=== PATIENT | male | born 1955 | race Two or more races ===

== ENCOUNTER 2024-12-06 09:34 | Inpatient (IN) | payer BC, OTHER ==
[~2024-12-06] VITALS: Ht 180.3 cm; Wt 67.2 kg
--- NOTE | 2024-12-06 10:29 | ED.PDOC ---
GI ASSESSMENT HPI Comments 68 y/o M, with PMHx of HTN presents to the ED for CC of abdominal pain. Patient states, that he has been experiencing diffuse abdominal pain with associated diarrhea and fever onset, (12/02/24). Patient reports, that he has been unable to eat as it immediately triggers him to have a bowel movement. Patient denies blood in stool, back pain, dysuria, nausea, or vomiting. No other symptoms or modifying factors at this time. Chief Complaint: Abdominal Pain Time Seen by MD: 10:05 Reviewed Notes: Nurses Notes, Medications, Allergies Allergies: Coded Allergies: NO KNOWN ALLERGIES (Unverified , 12/06/24) Information Source: Patient, Relative (Child) Mode of Arrival: Ambulatory Timing: Days Duration: Since onset Prehospital treatment: None Vomitus: None Stool: Watery Severity: Moderate Recent: None Recent Hx of: None Pain Location: Diffuse Modifying Factors: Nothing Associated sign and symptoms: Diarrhea, Abdominal Pain Past Medical History PAST MEDICAL HISTORY: HTN Surgical History: Denies all surgeries Family History Family History: Unknown Social History Smoker: Non-Smoker Alcohol: Occasionally Drugs: Denies Drug Use Lives In: Home Constitutional: denies: chills, diaphoresis, fatigue, fever, malaise, sweats, weakness, others EENTM: denies: blurred vision, double vision, ear bleeding, ear discharge, ear drainage, ear pain, ear ringing, eye pain, eye redness, hearing loss, mouth pain, mouth swelling, nasal discharge, nose bleeding, nose congestion, nose pain, photophobia, tearing, throat pain, throat swelling, voice changes, others Respiratory: denies: cough, hemoptysis, orthopnea, SOB at rest, shortness of breath, SOB with excertion, stridor, wheezing, others Cardiovascular: denies: chest pain, dizzy spells, diaphoresis, Dyspnea on exertion, edema, irregular heart beat, left arm pain, lightheadedness, palpitations, PND, syncope, others Gastrointestinal: reports: abdominal pain, diarrhea, poor appetite; denies: abdomen distended, blood streaked bowels, constipated, dysphagia, difficulty swallowing, hematemesis, melena, nausea, poor fluid intake, rectal bleeding, rectal pain, vomiting, others Genitourinary: denies: burning, dysuria, flank pain, frequency, hematuria, incontinence, penile discharge, penile sore, pain, testicle pain, testicle swelling, urgency, others Neurological: denies: dizziness, fainting, headache, left sided numbness, left sided weakness, numbness, paresthesia, pre-existing deficit, right sided numbness, right sided weakness, seizure, speech problems, tingling, tremors, weakness, others Musculoskeletal: denies: back pain, gout, joint pain, joint swelling, muscle pain, muscle stiffness, neck pain, others Integumetry: denies: bruises, change in color, change in hair/nails, dryness, laceration, lesions, lumps, rash, wounds, others Allergic/Immunocompromised: denies: Difficulty Healing, Frequent Infections, Hives, Itching, others Hematologic/Lymphatic: denies: anemia, blood clots, easy bleeding, easy bruising, swollen glands, others Endocrine: denies: excessive hunger, excessive sweating, excessive thirst, excessive urination, flushing, intolerance to cold, intolerance to heat, unexp lained weight gain, unexplained weight loss, others Psychiatric: denies: anxiety, bipolar disorder, depression, hopeless, panic disorder, schizophrenia, sleepless, suicidal, others All Other Systems: Reviewed and Negative Physical Exam General Appearance: Moderate Distress HEENT: Normal ENT Inspection, Pharynx Normal, TMs Normal Neck: Full Range of Motion, Non-Tender, Normal, Normal Inspection Respiratory: Chest Non-Tender, Lungs Clear, No Accessory Muscle Use, No Respiratory Distress, Normal Breath Sounds Cardiovascular: No Edema, No JVD, No Murmur, No Gallop, Normal Peripheral Pulses, Regular Rate/Rhythm Breast Exam: Deferred Gastrointestinal: Diffuse, No Organomegaly, No Pulsatile Mass, Normal Bowel Sounds, Soft, Tenderness Genitalia: Deferred Pelvic: Deferred Rectal: Deferred Extremities: No calf tenderness, Normal capillary refill, Normal inspection, Normal range of motion, Non-tender, No pedal edema Musculoskeletal : Apperance: Normal Neurologic: Alert, 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 Was a procedure done?: No GI differential Dx Differential Diagnosis: Diverticular disease, Gastritis/PUD, Gastroenteritis, Electrolyte Imbalance, Food Poisoning, Bacterial, Viral X-Ray, Labs, Meds, VS Vital Signs Date Time Temp Pulse Resp B/P (MAP) Pulse Ox O2 Delivery O2 Flow Rate FiO2 12/06/24 13:12 98.2 80 16 131/75 (93) 98 98.2 12/06/24 11:00 98.7 89 17 125/75 (92) 97 98.7 12/06/24 11:00 89 17 97 Room Air* 0 21 12/06/24 09:52 89 12/06/24 09:49 Room Air 0 12/06/24 09:49 98.4 108 20 128/84 (99) 99 98.4 Lab Test 12/06/24 10:48 Range/Units White Blood Count 9.6 4.4-10.8 10^3/uL Red Blood Count 4.80 4.5-5.90 10^6/uL Hemoglobin 12.8 L 13.5-17.5 g/dL Hematocrit 39.2 L 41.0-53.0 % Mean Corpuscular Volume 81.7 80.0-100.0 fL Mean Corpuscular Hemoglobin 26.6 L 28.0-32.0 pg Mean Corpuscular Hemoglobin Concent 32.6 32.0-36.0 g/dL Red Cell Distribution Width 16.5 H 11.8-14.3 % Platelet Count 326 140-450 10^3/uL Mean Platelet Volume 6.5 L 6.9-10.8 fL Neutrophils (%) (Auto) 37.0-80.0 % Lymphocytes (%) (Auto) 10.0-50.0 % Monocytes (%) (Auto) 0.0-12.0 % Basophils (%) (Auto) 0.0-2.0 % Neutrophils # (Auto) 1.6-8.6 10 ^3/uL Lymphocytes # (Auto) 0.4-5.4 10 ^3/uL Monocytes # (Auto) 0-1.3 10 ^3/uL Differential Total Cells Counted 100.0 100 Neutrophils % (Manual) 60 37.0-80.0 Band Neutrophils % (Manual) 11 Lymphocytes % (Manual) 10 10.0-50.0 Monocytes % (Manual) 19 H 0-12 Eosinophils % (Manual) 0 0-7 Basophils % (Manual) 0 0.0-2.0 Metamyelocytes % (manual) 0 Myelocytes % (Manual) 0 Promyelocytes % (Manual) 0 Blast Cells % (Manual) 0 Reactive Lymphocytes 0 Platelet Estimate Adequate Sodium Level 137 136-145 mmol/L Potassium Level 3.6 3.5-5.1 mmol/L Chloride Level 105 98-107 mmol/L Carbon Dioxide Level 23 20-31 mmol/L Anion Gap 9 5-15 Blood Urea Nitrogen 25 H 9-23 mg/dL Creatinine 1.43 H 0.700-1.30 mg/dL Glomerular Filtration Rate Calc 53 >90 mL/min BUN/Creatinine Ratio 17.5 10.0-20.0 Serum Glucose 114 H 74-106 mg/dL Calcium Level 9.8 8.7-10.4 mg/dL Total Bilirubin 0.4 0.2-1.0 mg/dL Aspartate Amino Transferase (AST) 34 13-40 U/L Alanine Aminotransferase (ALT) 45 H 7-40 U/L Alkaline Phosphatase 104 46-116 U/L Total Protein 7.6 5.7-8.2 g/dL Albumin 4.5 3.2-4.8 g/dL Current Medications Medications (Trade) Dose Ordered Sig/Alyssia Route Start Time Stop Time Status Last Admin Sodium Chloride 1,000 ml @ 1,000 mls/hr Q1H ONCE IVB 12/06/24 10:30 12/06/24 11:29 DC 12/06/24 11:09 CT FINDINGS: IMPRESSION: 1. Findings which may reflect proctocolitis. 2. Sigmoid diverticulosis without acute diverticulitis. 3. Enlarged prostate. 4. 4.3 cm right parapelvic lesion in the kidney which is isodense to renal parenchyma. This is incompletely characterized on this noncontrast study. Consider renal ultrasound as initial evaluation. MRI of the abdomen using int ravenous contrast May also be performed. 5. Hiatal hernia. The patient's CBC is within normal limits The chemistry panel shows a BUN of 25 and a creatinine of 1.43 The rest of the chemistry panel shows hyperglycemia at 114 An IV Hep-Lock was established and the patient was given a 1 L bolus of normal saline The patient is being admitted with a diagnosis of intractable abdominal pain and abdominal pain unknown etiology Images Reviewed?: Images reviewed and evaluated by me Time of 1ST Reevaluation: 10:35 Reevaluation 1ST: Unchanged Patient Education/Counseling: Diagnosis, Treatment, Prognosis Family Education/Counseling: No Family Present Departure 1 Departure Time of Disposition: 14:39 Impression: Primary Impression: Intractable abdominal pain Additional Impression: Abdominal pain of unknown etiology Disposition: ADMITTED INPATIENT Admit to: Med Surg Condition: Fair Critical Care Note Critical Care Time?: No Stability Stability form required: No Heart Score Heart Score: Heart Score Response (Comments) Value History N/A 0 EKG N/A 0 Age N/A 0 Risk Factors N/A 0 Troponin N/A 0 Total 0 I personally scribed for KT EL MD ([email or web address]) on 12/06/24 at 10:29. Electronically submitted by Li Leon ([email or web address]). I personally scribed for KT EL MD ([email or web address]) on 12/06/24 at 11:21. Electronically submitted by Li Leon ([email or web address]). KT EL MD December 06, 2024 10:29
[2024-12-06 11:00] VITALS: PULSE 89; RESP 17; O2SAT 97
[2024-12-06 11:03] LABS: Hematocrit 39.2 % (41.0-53.0); Hemoglobin 12.8 g/dL (13.5-17.5); Mean Corpuscular Hemoglobin 26.6 pg (28.0-32.0); Mean Corpuscular Hgb Conc. 32.6 g/dL (32.0-36.0); Platelet Count (auto) 326 10^3/uL (140-450)
--- NOTE | 2024-12-06 11:06 | DVH ---
Exam: CT CT AB PEL WO CON-NO ORAL OR IV History: PAIN Comparison Study: None Technique: Multidetector spiral CT of the abdomen and pelvis was performed from lung bases to pubic s ymphysis. Imaging was performed without intravenous contrast. Coronal and sagittal multiplanar reform ats were obtained from the axial data set by the technologist. Radiation Dose : 1. Abdomen/Pelvis: CTDIvol 8.6 mGy, DLP 507.4 mGy*cm. Findings: Evaluation of vasculature and solid organs is limited due to lack of intravenous contrast use. Lung Bases: Lung bases are clear. Visualized portions of the heart and pericardium are unremarkable. Liver: The liver measures 21.0 cm. No focal lesions. Gallbladder and Biliary Tree: The gallbladder is unremarkable. No intrahepatic or extrahepatic biliar y ductal dilatation. Spleen: Unremarkable Pancreas: The pancreas is grossly unremarkable. Adrenal Glands: Unremarkable Kidneys: No intrarenal calculi. 3.6 cm left renal cyst. There is a right parapelvic lesion measuring 4.3 cm which is isodense to the renal parenchyma. No hydronephrosis on either side. GI tract: Moderate size hiatal hernia. No small bowel dilatation or significant wall thickening. Ther e is mild wall thickening of the rectosigmoid colon which contains liquid stool. Sigmoid diverticulo sis without acute diverticulitis. Normal caliber appendix. Peritoneum/mesentery/retroperitoneum. No evidence of free intraperitoneal air. No ascites. No evidenc e of suspicious lymphadenopathy. Abdominal Wall: Unremarkable. Vasculature: The visualized abdominal aorta is normal in size and caliber. Evaluation of abdominal a nd pelvic vessels is limited due to lack of intravenous contrast. Urinary Bladder: Underdistended urinary bladder. Pelvic Organs: Enlarged prostate measuring 5.0 cm. Musculoskeletal: No aggressive focal bony lesions, acute fractures or dislocation. Multilevel lumbar spondylosis. IMPRESSION: 1. Findings which may reflect proctocolitis. 2. Sigmoid diverticulosis without acute diverticulitis. 3. Enlarged prostate. 4. 4.3 cm right parapelvic lesion in the kidney which is isodense to renal parenchyma. This is incomp letely characterized on this noncontrast study. Consider renal ultrasound as initial evaluation. MR I of the abdomen using intravenous contrast May also be performed. 5. Hiatal hernia.
[2024-12-06 11:09] LABS: Mean Corpuscular Volume 81.7 fL (80.0-100.0); Red Cell Distribution Width 16.5 % (11.8-14.3); White Blood Cell 9.6 10^3/uL (4.4-10.8)
[2024-12-06] MEDS: SODIUM CHLORIDE 0.9% 1,000 ML IVB ONE (11:09)
[2024-12-06 11:16] LABS: Albumin 4.5 g/dL (3.2-4.8); Alkaline Phosphatase 104 U/L (46-116); Anion Gap 9 (5-15); Aspartate Aminotransferase 34 U/L (13-40); BUN/Creatinine Ratio 17.5 (10.0-20.0); Calcium 9.8 mg/dL (8.7-10.4); Carbon Dioxide 23 mmol/L (20-31); Chloride 105 mmol/L (98-107); Potassium 3.6 mmol/L (3.5-5.1); Sodium 137 mmol/L (136-145); Total Protein 7.6 g/dL (5.7-8.2)
[2024-12-06 11:17] LABS: Alanine Aminotransferase 45 U/L (7-40); Bilirubin, Total 0.4 mg/dL (0.2-1.0); Blood Urea Nitrogen 25 mg/dL (9-23); Glucose 114 mg/dL (74-106)
[2024-12-06 11:20] LABS: Basophils % (manual) 0 (0.0-2.0); Blast Cells 0; Eosinophils % (manual) 0 (0-7); Metamyelocytes % 0; Myelocytes % 0; Promyelocytes % 0; Reactive Lymphocytes 0
[2024-12-06 12:31] LABS: Band Neutrophils % (manual) 11; Lymphocytes % (manual) 10 (10.0-50.0); Monocytes % (manual) 19 (0-12)
[2024-12-06 12:32] LABS: Platelet Estimate Adequate
--- NOTE | 2024-12-06 14:56 | DVHHP2 ---
Admitting Diagnosis: Abdominal pain History of Present Illness 68 yo male patient with hx of HTN c/o abdominal pain with associated diarrhea. Patient reports having a fever. Patient reports that he has been unable to eat due to diarrhea. While in the emergency department the patient was evaluated by the provider, As per provider: Labs, vital signs, and imagining monitored. Patient will be admitted for further evaluation and treatment. I discussed admission with the patient/family and is in agreement to treatment plan. Allergies: Coded Allergies: NO KNOWN ALLERGIES (Unverified , 12/06/24) Current Medications Current Medications Medications (Trade) Dose Ordered Sig/Alyssia Route PRN Reason Start Time Stop Time Status Last Admin Sodium Chloride 1,000 ml @ 120 mls/hr Q8H20M IV 12/06/24 15:00 Acetaminophen/ Hydrocodone Bitart ([place] 5/325MG Tab) 1 tab Q4HP PRN PO MODERATE PAIN (4-6 PAIN SCALE) 12/06/24 15:00 Temazepam (Restoril) 15 mg QHSP PRN PO FOR INSOMNIA 12/06/24 15:00 Ondansetron HCl (Zofran) 4 mg Q4HP PRN IV NAUSEA / VOMITING 12/06/24 15:00 Enoxaparin Sodium (Lovenox) 40 mg DAILY SC 12/07/24 10:00 Acetaminophen (Tylenol Tablet) 650 mg Q6HP PRN PO PAIN SCALE 1-3 OR TEMP>100.4 12/06/24 15:00 Morphine Sulfate 2 mg Q4HPRN PRN IV SEVERE PAIN (7-10 PAIN SCALE) 12/06/24 15:00 Metronidazole 100 ml @ 100 mls/hr Q8HR IV 12/06/24 15:00 12/06/24 15:21 Ceftriaxone Sodium 50 ml @ 100 mls/hr DAILY IV 12/06/24 15:00 12/06/24 15:20 Pantoprazole Sodium (Protonix Tablet) 40 mg DAILY PO 12/07/24 10:00 Lisinopril (Zestril Tablet) 20 mg DAILY PO 12/07/24 10:00 Sodium Chloride 1,000 ml @ 125 mls/hr Q8H IV 12/06/24 15:00 Review of Systems Constitutional: denies chills, denies fever, denies malaise Eyes: denies eye pain, denies vision change ENT: denies ear pain, denies headache, denies nasal congestion, denies painful swallowing, denies voice change Cardiovascular: denies chest pain, denies edema, denies orthopnea, denies palpitations, denies paroxysmal nocturnal dyspnea Respiratory: denies cough, denies shortness of breath Gastrointestinal: denies constipation, denies diarrhea, denies nausea, denies vomiting Genitourinary: denies dysuria, denies frequent urination, denies urethral discharge Musculoskeletal: denies back pain, denies joint pain, denies muscle pain Skin: denies bruising, denies itching, denies rash Neurological: denies focal weakness, denies headache, denies sensory changes Psychiatric: denies anxiety, denies depression Endocrine: denies polydipsia, denies polyuria Hematologic/Lymphatic: denies easy bleeding, denies easy bruising, denies enlarged lymph nodes Allergic/Immunologic: denies allergy, denies hives Vital Signs Vital Signs Date Time Temp Pulse Resp B/P (MAP) Pulse Ox O2 Delivery O2 Flow Rate FiO2 12/06/24 17:30 98.9 83 16 135/95 (108) 96 98.9 12/06/24 11:00 Room Air* 0 21 Physical Exam General Appearance: alert, no distress HEENT: EOMI, PERRLA, normal external inspect of ears, no icterus, no nasal drainage Neck: no carotid bruit, no jugular venous distention (JVD), no lymphadenopathy Chest: normal thorax Respiratory: clear to auscultation, normal air movement Cardiovascular: regular rate and rhythm, no diastolic murmur, no jugular venous distention (JVD), no rub, no systolic murmur Abdominal: soft, no hepatomegaly, no mass, no splenomegaly, no tenderness Genitourinary: grossly normal external Musculoskeletal: no joint tenderness, no swelling Extremities: normal pulses, no calf tenderness, no clubbing, no cyanosis, no edema Skin: no bruising, no jaundice, no rash Neurological: alert, No focal deficit Results Labs Test 12/06/24 11:04 12/06/24 10:48 Range/Units Urine Color Yellow Yellow Urine Clarity Clear Clear Urine pH 5.5 5.0-9.0 Urine Specific [place] 1.022 1.001-1.035 Urine Protein 1+ H Negative Urine Ketones Negative Negative Urine Blood Negative Negative /uL Urine Nitrite Negative Negative Urine Bilirubin Negative Negative Urine Urobilinogen Normal Negative mg/dL Urine Leukocyte Esterase Negative Negative /uL Urine RBC 1 0 - 3 /hpf Urine Microscopic WBC 1 0-3 /HPF Urine Squamous Epithelial Cells Few <5 /hpf Urine Bacteria None seen None Seen /hpf Urine Hyaline Casts Few 0 - 2 /lpf Urine Mucus Few None Seen Urine Glucose Normal Normal mg/dL White Blood Count 9.6 4.4-10.8 10^3/uL Red Blood Count 4.80 4.5-5.90 10^6/uL Hemoglobin 12.8 L 13.5-17.5 g/dL Hematocrit 39.2 L 41.0-53.0 % Mean Corpuscular Volume 81.7 80.0-100.0 fL Mean Corpuscular Hemoglobin 26.6 L 28.0-32.0 pg Mean Corpuscular Hemoglobin Concent 32.6 32.0-36.0 g/dL Red Cell Distribution Width 16.5 H 11.8-14.3 % Platelet Count 326 140-450 10^3/uL Mean Platelet Volume 6.5 L 6.9-10.8 fL Neutrophils (%) (Auto) 37.0-80.0 % Lymphocytes (%) (Auto) 10.0-50.0 % Monocytes (%) (Auto) 0.0-12.0 % Basophils (%) (Auto) 0.0-2.0 % Neutrophils # (Auto) 1.6-8.6 10 ^3/uL Lymphocytes # (Auto) 0.4-5.4 10 ^3/uL Monocytes # (Auto) 0-1.3 10 ^3/uL Differential Total Cells Counted 100.0 100 Neutrophils % (Manual) 60 37.0-80.0 Band Neutrophils % (Manual) 11 Lymphocytes % (Manual) 10 10.0-50.0 Monocytes % (Manual) 19 H 0-12 Eosinophils % (Manual) 0 0-7 Basophils % (Manual) 0 0.0-2.0 Metamyelocytes % (manual) 0 Myelocytes % (Manual) 0 Promyelocytes % (Manual) 0 Blast Cells % (Manual) 0 Reactive Lymphocytes 0 Platelet Estimate Adequate Sodium Level 137 136-145 mmol/L Potassium Level 3.6 3.5-5.1 mmol/L Chloride Level 105 98-107 mmol/L Carbon Dioxide Level 23 20-31 mmol/L Anion Gap 9 5-15 Blood Urea Nitrogen 25 H 9-23 mg/dL Creatinine 1.43 H 0.700-1.30 mg/dL Glomerular Filtration Rate Calc 53 >90 mL/min BUN/Creatinine Ratio 17.5 10.0-20.0 Serum Glucose 114 H 74-106 mg/dL Calcium Level 9.8 8.7-10.4 mg/dL Total Bilirubin 0.4 0.2-1.0 mg/dL Aspartate Amino Transferase (AST) 34 13-40 U/L Alanine Aminotransferase (ALT) 45 H 7-40 U/L Alkaline Phosphatase 104 46-116 U/L Total Protein 7.6 5.7-8.2 g/dL Albumin 4.5 3.2-4.8 g/dL Plan 1. Proctocolitis Monitor, IV abx, daily labs 2. Diarrhea Monitor, GI consult, PPI 3. Benign essential HTN Monitor, antihypertensives, DVT prophylaxis 4. Dehydration Monitor, IV fluids Plan discussed with: Patient, Other SUHAS AREVALO NP December 06, 2024 14:56
[2024-12-06 14:57] LABS: Urine Bacteria None Seen /hpf (None Seen)
[2024-12-06] MEDS: SODIUM CHLORIDE 0.9% 1,000 ML IV SCH ×2 (15:00)
[2024-12-06] MEDS ORDERED: HYDROcodone-ACET 5/325MG TAB PO PRN (15:00)
[2024-12-06] MEDS ORDERED: TEMAZEPAM 15 MG CAP PO PRN (15:00)
[2024-12-06] MEDS ORDERED: ONDANSETRON HCL 4 MG/2 ML VIAL IV PRN (15:00)
[2024-12-06] MEDS ORDERED: ACETAMINOPHEN 325 MG TAB PO PRN (15:00)
[2024-12-06] MEDS ORDERED: MORPHINE SULFATE INJ 2 MG/ml SYRG IV PRN (15:00)
[2024-12-06 15:09] LABS: Urine Blood Negative /uL (Negative); Urine Clarity Clear (Clear); Urine Color Yellow (Yellow); Urine Hyaline Cast FEW /lpf (0 - 2); Urine Mucus FEW (None Seen); Urine Protein, UAD 1+ (Negative); Urine Specific Gravity 1.022 (1.001-1.035); Urine Squamous Epithelial Cell FEW /hpf (<5); Urine Urobilinogen Normal (Negative); Urine WBC 1 /HPF (0-3); Urine pH 5.5 (5.0-9.0)
[2024-12-06] MEDS: cefTRIAXone 1GM/50ML D5W 50 ML IV SCH (15:20)
[2024-12-06] MEDS: metroNIDAZOLE 500MG/100ML 100 ML IV SCH (15:21)
--- NOTE | 2024-12-06 19:55 | DVHINCON2 ---
Date of service: December 06, 2024 Referring Physician Dayanna Ureña Reason for Consultation Possible proctocolitis History of Present Illness 68 y/o M, with PMHx of HTN presents to the ED for CC of abdominal pain. Patient states, that he has been experiencing diffuse abdominal pain with associated d iarrhea and fever onset, (12/02/24). Patient reports, that he has been unable to eat as it immediately triggers him to have a bowel movement. Patient denies blood in stool, back pain, dysuria, nausea, or vomiting. No other symptoms or modifying factors at this time.No prior history of colitis Past Medical History HTN Past Surgical History Negative Allergies: Coded Allergies: NO KNOWN ALLERGIES (Unverified , 12/06/24) Current Medications Current Medications Medications (Trade) Dose Ordered Sig/Alyssia Route PRN Reason Start Time Stop Time Status Last Admin Sodium Chloride 1,000 ml @ 120 mls/hr Q8H20M IV 12/06/24 15:00 Acetaminophen/ Hydrocodone Bitart ([place] 5/325MG Tab) 1 tab Q4HP PRN PO MODERATE PAIN (4-6 PAIN SCALE) 12/06/24 15:00 Temazepam (Restoril) 15 mg QHSP PRN PO FOR INSOMNIA 12/06/24 15:00 Ondansetron HCl (Zofran) 4 mg Q4HP PRN IV NAUSEA / VOMITING 12/06/24 15:00 Enoxaparin Sodium (Lovenox) 40 mg DAILY SC 12/07/24 10:00 Acetaminophen (Tylenol Tablet) 650 mg Q6HP PRN PO PAIN SCALE 1-3 OR TEMP>100.4 12/06/24 15:00 Morphine Sulfate 2 mg Q4HPRN PRN IV SEVERE PAIN (7-10 PAIN SCALE) 12/06/24 15:00 Metronidazole 100 ml @ 100 mls/hr Q8HR IV 12/06/24 15:00 12/06/24 15:21 Ceftriaxone Sodium 50 ml @ 100 mls/hr DAILY IV 12/06/24 15:00 12/06/24 15:20 Pantoprazole Sodium (Protonix Tablet) 40 mg DAILY PO 12/07/24 10:00 Lisinopril (Zestril Tablet) 20 mg DAILY PO 12/07/24 10:00 Sodium Chloride 1,000 ml @ 125 mls/hr Q8H IV 12/06/24 15:00 Vital Signs Vital Signs Date Time Temp Pulse Resp B/P (MAP) Pulse Ox O2 Delivery O2 Flow Rate FiO2 12/06/24 17:30 98.9 83 16 135/95 (108) 96 98.9 12/06/24 11:00 Room Air* 0 21 Physical Exam Hemodynamically stable Full physical examination deferred Labs/Diagnostic Data Labs Test 12/06/24 11:04 12/06/24 10:48 Range/Units Urine Color Yellow Yellow Urine Clarity Clear Clear Urine pH 5.5 5.0-9.0 Urine Specific [place] 1.022 1.001-1.035 Urine Protein 1+ H Negative Urine Ketones Negative Negative Urine Blood Negative Negative /uL Urine Nitrite Negative Negative Urine Bilirubin Negative Negative Urine Urobilinogen Normal Negative mg/dL Urine Leukocyte Esterase Negative Negative /uL Urine RBC 1 0 - 3 /hpf Urine Microscopic WBC 1 0-3 /HPF Urine Squamous Epithelial Cells Few <5 /hpf Urine Bacteria None seen None Seen /hpf Urine Hyaline Casts Few 0 - 2 /lpf Urine Mucus Few None Seen Urine Glucose Normal Normal mg/dL White Blood Count 9.6 4.4-10.8 10^3/uL Red Blood Count 4.80 4.5-5.90 10^6/uL Hemoglobin 12.8 L 13.5-17.5 g/dL Hematocrit 39.2 L 41.0-53.0 % Mean Corpuscular Volume 81.7 80.0-100.0 fL Mean Corpuscular Hemoglobin 26.6 L 28.0-32.0 pg Mean Corpuscular Hemoglobin Concent 32.6 32.0-36.0 g/dL Red Cell Distribution Width 16.5 H 11.8-14.3 % Platelet Count 326 140-450 10^3/uL Mean Platelet Volume 6.5 L 6.9-10.8 fL Neutrophils (%) (Auto) 37.0-80.0 % Lymphocytes (%) (Auto) 10.0-50.0 % Monocytes (%) (Auto) 0.0-12.0 % Basophils (%) (Auto) 0.0-2.0 % Neutrophils # (Auto) 1.6-8.6 10 ^3/uL Lymphocytes # (Auto) 0.4-5.4 10 ^3/uL Monocytes # (Auto) 0-1.3 10 ^3/uL Differential Total Cells Counted 100.0 100 Neutrophils % (Manual) 60 37.0-80.0 Band Neutrophils % (Manual) 11 Lymphocytes % (Manual) 10 10.0-50.0 Monocytes % (Manual) 19 H 0-12 Eosinophils % (Manual) 0 0-7 Basophils % (Manual) 0 0.0-2.0 Metamyelocytes % (manual) 0 Myelocytes % (Manual) 0 Promyelocytes % (Manual) 0 Blast Cells % (Manual) 0 Reactive Lymphocytes 0 Platelet Estimate Adequate Sodium Level 137 136-145 mmol/L Potassium Level 3.6 3.5-5.1 mmol/L Chloride Level 105 98-107 mmol/L Carbon Dioxide Level 23 20-31 mmol/L Anion Gap 9 5-15 Blood Urea Nitrogen 25 H 9-23 mg/dL Creatinine 1.43 H 0.700-1.30 mg/dL Glomerular Filtration Rate Calc 53 >90 mL/min BUN/Creatinine Ratio 17.5 10.0-20.0 Serum Glucose 114 H 74-106 mg/dL Calcium Level 9.8 8.7-10.4 mg/dL Total Bilirubin 0.4 0.2-1.0 mg/dL Aspartate Amino Transferase (AST) 34 13-40 U/L Alanine Aminotransferase (ALT) 45 H 7-40 U/L Alkaline Phosphatase 104 46-116 U/L Total Protein 7.6 5.7-8.2 g/dL Albumin 4.5 3.2-4.8 g/dL CT SCAN ABD PELVIS IMPRESSION: 1. Findings which may reflect proctocolitis. 2. Sigmoid diverticulosis without acute diverticulitis. 3. Enlarged prostate. 4. 4.3 cm right parapelvic lesion in the kidney which is isodense to renal parenchyma. This is incompletely characterized on this noncontrast study. Consider renal ultrasound as initial evaluation. MRI of the abdomen using intravenous contrast May also be performed. 5. Hiatal hernia. Problems(with codes): (1) Abnormal finding on GI tract imaging (2) Change in bowel habits (3) Proctocolitis (4) Intractable abdominal pain Plan/Recommendation PLAN Stool for occult blood, WBC, bacterial culture Continue IV antibiotics mesalamine 800 mg p.o. three times a day We will discuss the patient regarding the possibility of a colonoscopy if not recently donePossibly as an outpatient if his symptoms improve Plan discussed with: Other (None) AMANDA VIERA MD December 06, 2024 19:55
[2024-12-07 01:52] VITALS: PULSE 84; O2SAT 96
[2024-12-07 05:38] LABS: Hematocrit 32.5 % (41.0-53.0); Hemoglobin 10.7 g/dL (13.5-17.5); Mean Corpuscular Hemoglobin 26.4 pg (28.0-32.0); Mean Corpuscular Hgb Conc. 32.9 g/dL (32.0-36.0); Mean Corpuscular Volume 80.1 fL (80.0-100.0); Platelet Count (auto) 296 10^3/uL (140-450); Red Blood Cells 4.06 10^6/uL (4.5-5.90); Red Cell Distribution Width 16.7 % (11.8-14.3); White Blood Cell 5.9 10^3/uL (4.4-10.8)
[2024-12-07 05:40] LABS: Alanine Aminotransferase 36 U/L (7-40); Albumin 3.8 g/dL (3.2-4.8); Alkaline Phosphatase 90 U/L (46-116); Anion Gap 9 (5-15); Aspartate Aminotransferase 32 U/L (13-40); BUN/Creatinine Ratio 29.1 (10.0-20.0); Carbon Dioxide 23 mmol/L (20-31); Glucose 98 mg/dL (74-106); Potassium 3.6 mmol/L (3.5-5.1); Sodium 139 mmol/L (136-145); Total Protein 6.2 g/dL (5.7-8.2)
[2024-12-07 05:43] LABS: Bilirubin, Total 0.2 mg/dL (0.2-1.0); Blood Urea Nitrogen 30 mg/dL (9-23); Calcium 8.6 mg/dL (8.7-10.4); Chloride 107 mmol/L (98-107)
[2024-12-07 05:48] LABS: Band Neutrophils % (manual) 0; Basophils % (manual) 0 (0.0-2.0); Blast Cells 0; Metamyelocytes % 0; Myelocytes % 0; Promyelocytes % 0; Reactive Lymphocytes 0
[2024-12-07 07:31] LABS: Eosinophils % (manual) 1 (0-7); Lymphocytes % (manual) 23 (10.0-50.0); Monocytes % (manual) 10 (0-12); Platelet Estimate Adequate
[2024-12-07 07:44] LABS: CRP High Sensitivity 5.96 mg/dL (<1.0)
--- NOTE | 2024-12-07 08:53 | DVHPN2 ---
Progress Note - Dictate Date Seen: December 07, 2024 Medical Necessity Reason Pt with a Central, PICC or Fol: No vital signs Vital Sign Date Time Temp Pulse Resp B/P (MAP) Pulse Ox O2 Delivery O2 Flow Rate FiO2 12/07/24 08:00 98.1 79 12 136/75 (95) 97 98.1 12/07/24 01:52 Room Air* 0 21 Total Intake and Output 12/06/24 12/06/24 12/07/24 15:00 23:00 07:00 Intake Total 1000 ml 50 ml 680 ml Balance 1000 ml 50 ml 680 ml medications Current Medications Medications Dose Ordered Sig/Alyssia Route Start Time Stop Time Status Last Admin Dose Admin Sodium Chloride 1,000 ml @ 120 mls/hr Q8H20M IV 12/06/24 15:00 12/07/24 01:29 120 MLS/HR Acetaminophen/ Hydrocodone Bitart 1 tab Q4HP PRN PO 12/06/24 15:00 Temazepam 15 mg QHSP PRN PO 12/06/24 15:00 Ondansetron HCl 4 mg Q4HP PRN IV 12/06/24 15:00 Enoxaparin Sodium 40 mg DAILY SC 12/07/24 10:00 Acetaminophen 650 mg Q6HP PRN PO 12/06/24 15:00 Morphine Sulfate 2 mg Q4HPRN PRN IV 12/06/24 15:00 Metronidazole 100 ml @ 100 mls/hr Q8HR IV 12/06/24 15:00 12/07/24 05:45 100 MLS/HR Ceftriaxone Sodium 50 ml @ 100 mls/hr DAILY IV 12/06/24 15:00 12/06/24 15:20 100 MLS/HR Pantoprazole Sodium 40 mg DAILY PO 12/07/24 10:00 Lisinopril 20 mg DAILY PO 12/07/24 10:00 Sodium Chloride 1,000 ml @ 125 mls/hr Q8H IV 12/06/24 15:00 objective General Appearance: alert, no distress HEENT: EOMI, PERRLA, normal external inspect of ears, no icterus, no nasal drainage Neck: no carotid bruit, no jugular venous distention (JVD), no lymphadenopathy Chest: normal thorax Respiratory: clear to auscultation, normal air movement Cardiovascular: regular rate and rhythm, no diastolic murmur, no jugular venous distention (JVD), no rub, no systolic murmur Abdominal: soft, no hepatomegaly, no mass, no splenomegaly, no tenderness Genitourinary: grossly normal external Musculoskeletal: no joint tenderness, no swelling Extremities: normal pulses, no calf tenderness, no clubbing, no cyanosis, no edema Skin: no bruising, no jaundice, no rash Neurological: alert, No focal deficit laboratory and microbiology Laboratory Tests 12/07/24 04:48 Test 12/07/24 04:48 Range/Units Serum Glucose 98 74-106 mg/dL Problem List 1. Proctocolitis Monitor, IV abx, daily labs 2. Diarrhea Monitor, GI consult, PPI 3. Benign essential HTN Monitor, antihypertensives, DVT prophylaxis 4. Dehydration Monitor, IV fluids Assessment/Plan Subjective: Patient is awake and alert. Objective: Patient is and speaks minimal Khmer. Patient is sitting up in a chair. Patient was admitted for abdominal pain related to frequent diarrhea. CT imaging suggests proctocolitis. GI was consulted. Patient was started on mesalamine. Patient was noted to be dehydrated and has resolving SARAH related to vasomotor nephropathy. Kidney function is now normal. Plan: Continue antibiotics for proctocolitis. Send stool for culture. Monitor renal status. Plan discussed with: Patient, Other SUHAS AREVALO NP December 07, 2024 08:53
--- NOTE | 2024-12-07 08:59 | ECG ---
[facility] Test Date: 2024-12-06 Test Time: 09:52:36 Pat Name: LANDY HEMPHILL Department: ER Room: 0238 Gender: M Hod Carrier: FRANCESCO : 1955 Requested By: EMERGENCY EMERGENCY Order Number: [id number] Reading MD: Filiberto Burks Measurements Intervals [place] Rate: 89 P: 84 [place]: 203 QRS: 256 QRSD: 107 T: 59 QT: 367 QTc: 447 Interpretive Statements Sinus rhythm Left anterior fascicular block Probable anterior infarct, old ST elevation suggests acute pericarditis Electronically Signed On 12-08-2024 12:45:23 PDT by Filiberto Burks Please click the below link to view image of tracing.
[2024-12-07] MEDS: PANTOPRAZOLE 40 MG TAB PO SCH (10:00)
[2024-12-07] MEDS: LISINOPRIL 20 MG TAB PO SCH (10:00)
[2024-12-07] MEDS: ENOXAPARIN SOD 40 MG/0.4 ML SYRINGE SC SCH (10:00)
--- NOTE | 2024-12-07 21:40 | DVHPN2 ---
Progress Note - Dictate Date Seen: December 07, 2024 Medical Necessity Reason Pt with a Central, PICC or Fol: No Subjective No new complaints, patient is feeling better Finally a stool sample was collected and sent to the lab this evening vital signs Vital Sign Date Time Temp Pulse Resp B/P (MAP) Pulse Ox O2 Delivery O2 Flow Rate FiO2 12/07/24 08:00 98.1 79 12 136/75 (95) 97 98.1 12/07/24 01:52 Room Air* 0 21 Total Intake and Output 12/06/24 12/06/24 12/07/24 15:00 23:00 07:00 Intake Total 1000 ml 50 ml 680 ml Balance 1000 ml 50 ml 680 ml medications Current Medications Medications Dose Ordered Sig/Alyssia Route Start Time Stop Time Status Last Admin Dose Admin Sodium Chloride 1,000 ml @ 120 mls/hr Q8H20M IV 12/06/24 15:00 12/07/24 01:29 120 MLS/HR Acetaminophen/ Hydrocodone Bitart 1 tab Q4HP PRN PO 12/06/24 15:00 Temazepam 15 mg QHSP PRN PO 12/06/24 15:00 Ondansetron HCl 4 mg Q4HP PRN IV 12/06/24 15:00 Enoxaparin Sodium 40 mg DAILY SC 12/07/24 10:00 Acetaminophen 650 mg Q6HP PRN PO 12/06/24 15:00 Morphine Sulfate 2 mg Q4HPRN PRN IV 12/06/24 15:00 Metronidazole 100 ml @ 100 mls/hr Q8HR IV 12/06/24 15:00 12/07/24 05:45 100 MLS/HR Ceftriaxone Sodium 50 ml @ 100 mls/hr DAILY IV 12/06/24 15:00 12/06/24 15:20 100 MLS/HR Pantoprazole Sodium 40 mg DAILY PO 12/07/24 10:00 Lisinopril 20 mg DAILY PO 12/07/24 10:00 Sodium Chloride 1,000 ml @ 125 mls/hr Q8H IV 12/06/24 15:00 objective General Appearance: No Distress HEENT: Normal ENT Inspection, Pharynx Normal, TMs Normal Respiratory: Chest Non-Tender, Lungs Clear, No Accessory Muscle Use, No Respiratory Distress, Normal Breath Sounds Cardiovascular: No Edema, No JVD, No Murmur, No Gallop, Normal Peripheral Pulses, Regular Rate/Rhythm Gastrointestinal: Diffuse, No Organomegaly, No Pulsatile Mass, Normal Bowel Sounds, Soft, Tenderness Extremities: No calf tenderness, Normal capillary refill, Normal inspection, Normal range of motion, Non-tender, No pedal edema Neurologic: Alert, 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, Motor Weakness, Normal Affect, Normal Mood, No Sensory Deficits laboratory and microbiology Laboratory Tests 12/07/24 04:48 Test 12/07/24 04:48 Range/Units Serum Glucose 98 74-106 mg/dL Problems(with codes): (1) Abnormal finding on GI tract imaging (2) Change in bowel habits (3) Proctocolitis (4) Intractable abdominal pain Prognosis Plan Continue IV antibiotics Advance to full liquid diet If he is better tomorrow we will advance to soft mechanical Await stool culture results Elective colonoscopy once medically stabilized Once again thank you for allowing me to participate in the care of this patient Plan discussed with: Other (ER Nurse) AMANDA VIERA MD December 07, 2024 21:39
[2024-12-08] VITALS (8 sets, daily range): BP systolic 129–153; BP diastolic 67–82; PULSE 63–81; RESP 16–18; TEMP 97.4–98.2; O2SAT 96–99
[2024-12-08 10:06] LABS: Basophils # (auto) 0 10 ^3/uL (0-0.2); Basophils % (auto) 0.4 % (0.0-2.0); Eosinophils # (auto) 0 10 ^3/uL (0-0.8); Eosinophils % (auto) 0.5 % (0.0-7.0); Hematocrit 32.5 % (41.0-53.0); Hemoglobin 10.6 g/dL (13.5-17.5); Lymphocytes # (auto) 1.3 10 ^3/uL (0.4-5.4); Lymphocytes % (auto) 27.1 % (10.0-50.0); Mean Corpuscular Hemoglobin 26.1 pg (28.0-32.0); Mean Corpuscular Hgb Conc. 32.6 g/dL (32.0-36.0); Monocytes # (auto) 0.8 10 ^3/uL (0-1.3); Monocytes % (auto) 17.3 % (0.0-12.0); Neutrophils # (auto) 2.6 10 ^3/uL (1.6-8.6); Neutrophils % (auto) 54.7 % (37.0-80.0); Nucleated Red Blood Cells % 0.1 %; Platelet Count (auto) 305 10^3/uL (140-450); Red Blood Cells 4.07 10^6/uL (4.5-5.90); Red Cell Distribution Width 16.4 % (11.8-14.3); White Blood Cell 4.7 10^3/uL (4.4-10.8)
[2024-12-08 10:10] LABS: Hepatitis B Surface Antigen Negative (Negative)
[2024-12-08 10:11] LABS: Potassium 3.5 mmol/L (3.5-5.1); Sodium 138 mmol/L (136-145)
[2024-12-08 10:12] LABS: Anion Gap 7 (5-15); Carbon Dioxide 23 mmol/L (20-31)
[2024-12-08 10:13] LABS: Calcium 9.3 mg/dL (8.7-10.4); Chloride 108 mmol/L (98-107)
[2024-12-08 10:17] LABS: Glucose 88 mg/dL (74-106)
[2024-12-08] MEDS: LISINOPRIL 20 MG TAB PO SCH (10:17)
[2024-12-08 10:18] LABS: BUN/Creatinine Ratio 27.2 (10.0-20.0); Blood Urea Nitrogen 22 mg/dL (9-23)
[2024-12-08 10:27] LABS: Hepatitis C Antibody Negative (Negative)
--- NOTE | 2024-12-08 14:13 | DVHPN2 ---
Progress Note - Dictate Date Seen: December 08, 2024 Medical Necessity Reason Pt with a Central, PICC or Fol: No Subjective No new complaints, patient is feeling better Finally a stool sample was collected for WBC was positive for many WBCs There was no further diarrhea and he is only passing gas Other stool samples were not collected Patient has not had a prior colonoscopy vital signs Vital Sign Date Time Temp Pulse Resp B/P (MAP) Pulse Ox O2 Delivery O2 Flow Rate FiO2 12/08/24 12:48 98.0 67 16 139/77 (97) 98 98.0 12/08/24 08:00 Room Air* 0 21 Total Intake and Output 12/07/24 12/07/24 12/08/24 15:00 23:00 07:00 Intake Total 250 ml Balance 250 ml medications Current Medications Medications Dose Ordered Sig/Alyssia Route Start Time Stop Time Status Last Admin Dose Admin Sodium Chloride 1,000 ml @ 120 mls/hr Q8H20M IV 12/06/24 15:00 12/07/24 01:29 120 MLS/HR Acetaminophen/ Hydrocodone Bitart 1 tab Q4HP PRN PO 12/06/24 15:00 Temazepam 15 mg QHSP PRN PO 12/06/24 15:00 Ondansetron HCl 4 mg Q4HP PRN IV 12/06/24 15:00 Enoxaparin Sodium 40 mg DAILY SC 12/07/24 10:00 12/08/24 10:18 40 MG Acetaminophen 650 mg Q6HP PRN PO 12/06/24 15:00 Morphine Sulfate 2 mg Q4HPRN PRN IV 12/06/24 15:00 Metronidazole 100 ml @ 100 mls/hr Q8HR IV 12/06/24 15:00 12/08/24 13:42 100 MLS/HR Ceftriaxone Sodium 50 ml @ 100 mls/hr DAILY IV 12/06/24 15:00 12/08/24 10:16 100 MLS/HR Pantoprazole Sodium 40 mg DAILY PO 12/07/24 10:00 12/08/24 10:16 40 MG Sodium Chloride 1,000 ml @ 125 mls/hr Q8H IV 12/06/24 15:00 12/08/24 08:13 125 MLS/HR Lisinopril 40 mg DAILY PO 12/08/24 10:00 12/08/24 10:17 40 MG objective General Appearance: No Distress HEENT: Normal ENT Inspection, Pharynx Normal, TMs Normal Respiratory: Chest Non-Tender, Lungs Clear, No Accessory Muscle Use, No Respiratory Distress, Normal Breath Sounds Cardiovascular: No Edema, No JVD, No Murmur, No Gallop, Normal Peripheral Pulses, Regular Rate/Rhythm Gastrointestinal: Diffuse, No Organomegaly, No Pulsatile Mass, Normal Bowel Sounds, Soft, Tenderness Extremities: No calf tenderness, Normal capillary refill, Normal inspection, Normal range of motion, Non-tender, No pedal edema Neurologic: 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, 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, Motor Weakness, Normal Affect, Normal Mood, No Sensory Deficits laboratory and microbiology Laboratory Tests 12/08/24 05:33 Test 12/08/24 05:33 Range/Units Serum Glucose 88 74-106 mg/dL Problems(with codes): (1) Abnormal finding on GI tract imaging (2) Change in bowel habits (3) Proctocolitis (4) Intractable abdominal pain Prognosis Assessment plan Patient likely had infectious or inflammatory colitis that is responding to IV antibiotics Full school stool culture workup is pending Doubt C diff as he is not currently having any diarrhea Continue IV antibiotics Advance diet as tolerated Patient was advised to follow up in my office in 4-6 weeks for elective colonoscopy once acute illness subsides Once again thank you for allowing me to participate in the care of this patient Plan discussed with: Patient, Daughter AMANDA VIERA MD December 08, 2024 14:13
--- NOTE | 2024-12-08 21:09 | DVHPN2 ---
Progress Note - Dictate Date Seen: December 08, 2024 Medical Necessity Reason Pt with a Central, PICC or Fol: No vital signs Vital Sign Date Time Temp Pulse Resp B/P (MAP) Pulse Ox O2 Delivery O2 Flow Rate FiO2 12/08/24 21:00 97.4 81 16 129/67 (87) 96 97.4 12/08/24 08:00 Room Air* 0 21 Total Intake and Output 12/07/24 12/07/24 12/08/24 15:00 23:00 07:00 Intake Total 250 ml Balance 250 ml medications Current Medications Medications Dose Ordered Sig/Alyssia Route Start Time Stop Time Status Last Admin Dose Admin Sodium Chloride 1,000 ml @ 120 mls/hr Q8H20M IV 12/06/24 15:00 12/07/24 01:29 120 MLS/HR Acetaminophen/ Hydrocodone Bitart 1 tab Q4HP PRN PO 12/06/24 15:00 Temazepam 15 mg QHSP PRN PO 12/06/24 15:00 Ondansetron HCl 4 mg Q4HP PRN IV 12/06/24 15:00 Enoxaparin Sodium 40 mg DAILY SC 12/07/24 10:00 12/08/24 10:18 40 MG Acetaminophen 650 mg Q6HP PRN PO 12/06/24 15:00 Morphine Sulfate 2 mg Q4HPRN PRN IV 12/06/24 15:00 Metronidazole 100 ml @ 100 mls/hr Q8HR IV 12/06/24 15:00 12/08/24 13:42 100 MLS/HR Ceftriaxone Sodium 50 ml @ 100 mls/hr DAILY IV 12/06/24 15:00 12/08/24 10:16 100 MLS/HR Pantoprazole Sodium 40 mg DAILY PO 12/07/24 10:00 12/08/24 10:16 40 MG Sodium Chloride 1,000 ml @ 125 mls/hr Q8H IV 12/06/24 15:00 12/08/24 16:26 125 MLS/HR Lisinopril 40 mg DAILY PO 12/08/24 10:00 12/08/24 10:17 40 MG objective General Appearance: alert, no distress HEENT: EOMI, PERRLA, normal external inspect of ears, no icterus, no nasal drainage Neck: no carotid bruit, no jugular venous distention (JVD), no lymphadenopathy Chest: normal thorax Respiratory: clear to auscultation, normal air movement Cardiovascular: regular rate and rhythm, no diastolic murmur, no jugular venous distention (JVD), no rub, no systolic murmur Abdominal: soft, no hepatomegaly, no mass, no splenomegaly, no tenderness Genitourinary: grossly normal external Musculoskeletal: no joint tenderness, no swelling Extremities: normal pulses, no calf tenderness, no clubbing, no cyanosis, no edema Skin: no bruising, no jaundice, no rash Neurological: alert, No focal deficit laboratory and microbiology Laboratory Tests 12/08/24 05:33 Test 12/08/24 05:33 Range/Units Serum Glucose 88 74-106 mg/dL Problem List 1. Proctocolitis Monitor, IV abx, daily labs 2. Diarrhea Monitor, GI consult, PPI 3. Benign essential HTN Monitor, antihypertensives, DVT prophylaxis 4. Dehydration Monitor, IV fluids Assessment/Plan Subjective: Patient is awake and alert. Objective: Patient was admitted for abdominal pain related to Proctocolitis. Patient states his diarrhea is improving, only having about three episodes so far today. IV fluids was initiated for dehydration. C. Diff is currently pending as well as labs for today. Plan: Continue Rocephin and Flagyl. GI recommendations appreciated. Continue IV fluids and await culture reports. Plan discussed with: Patient, Other SUHAS AREVALO NP December 08, 2024 21:09
[2024-12-09 01:00] VITALS: BP 133/73; PULSE 59; RESP 15; TEMP 98; O2SAT 100
[2024-12-09 04:32] VITALS: BP 141/72; PULSE 65; RESP 15; TEMP 97.9; O2SAT 99
[2024-12-09 08:00] VITALS: PULSE 78; RESP 18; O2SAT 97
[2024-12-09 08:43] VITALS: BP 144/79; PULSE 92; RESP 20; TEMP 98.1; O2SAT 99
[2024-12-09] MEDS ORDERED: METR-344 PO (11:22)
[2024-12-09] MEDS ORDERED: LEVO500T91 PO (11:22)
--- NOTE | 2024-12-09 11:24 | DVHDS2 ---
Discharge Summary Date of Admission December 06, 2024 at 14:49 Date of Discharge: December 09, 2024 Labs/Diagnostic Data: Laboratory Results Test 12/08/24 18:53 12/08/24 05:33 12/08/24 05:32 12/07/24 14:55 Stool Occult Blood Positive (Negative) Stool Occult Blood Sample #3 (Negative) White Blood Count 4.7 10^3/uL (4.4-10.8) Red Blood Count 4.07 10^6/uL (4.5-5.90) Hemoglobin 10.6 g/dL (13.5-17.5) Hematocrit 32.5 % (41.0-53.0) Mean Corpuscular Volume 80.0 fL (80.0-100.0) Mean Corpuscular Hemoglobin 26.1 pg (28.0-32.0) Mean Corpuscular Hemoglobin Concent 32.6 g/dL (32.0-36.0) Red Cell Distribution Width 16.4 % (11.8-14.3) Platelet Count 305 10^3/uL (140-450) Mean Platelet Volume 6.9 fL (6.9-10.8) Neutrophils (%) (Auto) 54.7 % (37.0-80.0) Lymphocytes (%) (Auto) 27.1 % (10.0-50.0) Monocytes (%) (Auto) 17.3 % (0.0-12.0) Eosinophils (%) (Auto) 0.5 % (0.0-7.0) Basophils (%) (Auto) 0.4 % (0.0-2.0) Neutrophils # (Auto) 2.6 10 ^3/uL (1.6-8.6) Lymphocytes # (Auto) 1.3 10 ^3/uL (0.4-5.4) Monocytes # (Auto) 0.8 10 ^3/uL (0-1.3) Eosinophils # (Auto) 0 10 ^3/uL (0-0.8) Basophils # (Auto) 0 10 ^3/uL (0-0.2) Nucleated Red Blood Cells 0.1 % Sodium Level 138 mmol/L (136-145) Potassium Level 3.5 mmol/L (3.5-5.1) Chloride Level 108 mmol/L (98-107) Carbon Dioxide Level 23 mmol/L (20-31) Anion Gap 7 (5-15) Blood Urea Nitrogen 22 mg/dL (9-23) Creatinine 0.81 mg/dL (0.700-1.30) Glomerular Filtration Rate Calc 95 mL/min (>90) BUN/Creatinine Ratio 27.2 (10.0-20.0) Serum Glucose 88 mg/dL (74-106) Calcium Level 9.3 mg/dL (8.7-10.4) Hepatitis B Surface Antigen Negative (Negative) Hepatitis C Antibody Negative (Negative) Stool for White Cells Many Test 12/07/24 04:48 12/06/24 11:04 Differential Total Cells Counted 100.0 (100) Neutrophils % (Manual) 66 (37.0-80.0) Band Neutrophils % (Manual) 0 Lymphocytes % (Manual) 23 (10.0-50.0) Monocytes % (Manual) 10 (0-12) Eosinophils % (Manual) 1 (0-7) Basophils % (Manual) 0 (0.0-2.0) Metamyelocytes % (manual) 0 Myelocytes % (Manual) 0 Promyelocytes % (Manual) 0 Blast Cells % (Manual) 0 Reactive Lymphocytes 0 Platelet Estimate Adequate Total Bilirubin 0.2 mg/dL (0.2-1.0) Aspartate Amino Transferase (AST) 32 U/L (13-40) Alanine Aminotransferase (ALT) 36 U/L (7-40) Alkaline Phosphatase 90 U/L (46-116) C-Reactive Protein High Sensitivity 5.96 mg/dL (<1.0) Total Protein 6.2 g/dL (5.7-8.2) Albumin 3.8 g/dL (3.2-4.8) Urine Color Yellow (Yellow) Urine Clarity Clear (Clear) Urine pH 5.5 (5.0-9.0) Urine Specific [place] 1.022 (1.001-1.035) Urine Protein 1+ (Negative) Urine Ketones Negative (Negative) Urine Blood Negative /uL (Negative) Urine Nitrite Negative (Negative) Urine Bilirubin Negative (Negative) Urine Urobilinogen Normal mg/dL (Negative) Urine Leukocyte Esterase Negative /uL (Negative) Urine RBC 1 /hpf (0 - 3) Urine Microscopic WBC 1 /HPF (0-3) Urine Squamous Epithelial Cells Few /hpf (<5) Urine Bacteria None seen /hpf (None Seen) Urine Hyaline Casts Few /lpf (0 - 2) Urine Mucus Few (None Seen) Urine Glucose Normal mg/dL (Normal) Other Laboratory Tests 12/08/24 05:33 Brief Hx & Hospital Course: 68 yo male patient with hx of HTN c/o abdominal pain with associated diarrhea. Patient reports having a fever. Patient reports that he has been unable to eat due to diarrhea. Patient was admitted on December 06, 2024 for abdominal pain and severe diarrhea, most likely infectious colitis. Stool for occult blood was positive, however hemoglobin was stable. Patient was seen by GI. Patient will continue antibiotics for 2 weeks. He was prescribed Flagyl and Levaquin and was instructed to follow- up with GI in 4 to 6 weeks with outpatient elective colonoscopy. There were no complaints or new complaints upon discharge, all questions and concerns were answered. Patient was advised to return to the ER or call 911 if any headaches, dizziness, shortness of breath, chest pain, bleeding, fevers, or worsening of medical condition. Patient/Family was counseled about treatment plan, medications, possible side effects, patientverbalized understanding. All questions were answered to the best of my ability. The patient symptoms improved and they are okay to be DC. Condition at Discharge: Stable Final Diagnosis/Problems List Infectious colitis Proctocolitis Diarrhea Benign essential HTN Dehydration Discharge Disposition: Home Discharge Instruct/Medications Diet: Cardiac 2g Na,low cholest Activity: No Restrictions, As Tolerated Follow Up/Referral: pcp 1 week Discharge Statement: "Patient was advised to return to the ER or call 911 if any headaches, dizziness, shortness of breath, chest pain, abdominal pain, bleeding, fevers, or worsening of medical condition. Patient was counseled about treatment plan, medications, possible side effects, patientverbalized understanding. All questions were answered to the best of my ability. This discharge took greater then 30 minutes in planning, reviewing documentation, counseling the patient, and discussing with other team members." ASSESSMENT ASSESSMENT Assessment Infectious colitis SUHAS AREVALO NP December 09, 2024 11:24
--- NOTE | 2024-12-09 13:48 | DVHPN2 ---
Progress Note - Dictate Date Seen: December 09, 2024 Medical Necessity Reason Pt with a Central, PICC or Fol: No Subjective No new complaints, patient is feeling better Finally a stool sample was collected for WBC was positive for many WBCs Stool c/s and C diff pending There was no further diarrhea and he is only passing gas Patient has not had a prior colonoscopy vital signs Vital Sign Date Time Temp Pulse Resp B/P (MAP) Pulse Ox O2 Delivery O2 Flow Rate FiO2 12/09/24 10:48 144/79 12/09/24 08:43 98.1 92 20 99 98.1 12/09/24 08:00 Room Air* 0 21 Total Intake and Output 12/08/24 12/08/24 12/09/24 15:00 23:00 07:00 Intake Total 250 ml 870 ml 520 ml Balance 250 ml 870 ml 520 ml medications Current Medications Medications Dose Ordered Sig/Alyssia Route Start Time Stop Time Status Last Admin Dose Admin Sodium Chloride 1,000 ml @ 120 mls/hr Q8H20M IV 12/06/24 15:00 12/09/24 01:20 120 MLS/HR Acetaminophen/ Hydrocodone Bitart 1 tab Q4HP PRN PO 12/06/24 15:00 Temazepam 15 mg QHSP PRN PO 12/06/24 15:00 Ondansetron HCl 4 mg Q4HP PRN IV 12/06/24 15:00 Enoxaparin Sodium 40 mg DAILY SC 12/07/24 10:00 12/09/24 10:49 40 MG Acetaminophen 650 mg Q6HP PRN PO 12/06/24 15:00 Morphine Sulfate 2 mg Q4HPRN PRN IV 12/06/24 15:00 Metronidazole 100 ml @ 100 mls/hr Q8HR IV 12/06/24 15:00 12/09/24 05:02 100 MLS/HR Ceftriaxone Sodium 50 ml @ 100 mls/hr DAILY IV 12/06/24 15:00 12/09/24 10:49 100 MLS/HR Pantoprazole Sodium 40 mg DAILY PO 12/07/24 10:00 12/09/24 10:48 40 MG Sodium Chloride 1,000 ml @ 125 mls/hr Q8H IV 12/06/24 15:00 12/08/24 16:26 125 MLS/HR Lisinopril 40 mg DAILY PO 12/08/24 10:00 12/09/24 10:48 40 MG objective General Appearance: No Distress HEENT: Normal ENT Inspection, Pharynx Normal, TMs Normal Respiratory: Chest Non-Tender, Lungs Clear, No Accessory Muscle Use, No Respiratory Distress, Normal Breath Sounds Cardiovascular: No Edema, No JVD, No Murmur, No Gallop, Normal Peripheral Pulses, Regular Rate/Rhythm Gastrointestinal: Diffuse, No Organomegaly, No Pulsatile Mass, Normal Bowel Sounds, Soft, Tenderness Extremities: No calf tenderness, Normal capillary refill, Normal inspection, Normal range of motion, Non-tender, No pedal edema Neurologic: Alert, 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, Motor Weakness, Normal Affect, Normal Mood, No Sensory Deficits laboratory and microbiology Laboratory Tests 12/08/24 05:33 Test 12/08/24 05:33 Range/Units Serum Glucose 88 74-106 mg/dL Problems(with codes): (1) Abnormal finding on GI tract imaging (2) Change in bowel habits (3) Proctocolitis (4) Intractable abdominal pain (5) Abdominal pain of unknown etiology Prognosis Assessment plan Patient likely had infectious or inflammatory colitis that is responding to IV antibiotics No further BM Doubt C diff as he is not currently having any diarrhea Continue oral antibiotics Advance diet as tolerated Discharge planning ongoing Patient was advised to follow up in my office in 4-6 weeks for elective colonoscopy once acute illness subsides Once again thank you for allowing me to participate in the care of this patient Plan discussed with: Patient, Daughter, Other AMANDA VIERA MD December 09, 2024 13:48
== END 2024-12-09 14:10 | disposition home or self-care (01) | DRG 391 ==
LOC: ER 09:34 → OVERFLOW 14:49 → EAST 12-07 23:53
PROVIDERS: ADMIT Nurse Practitioner; ATTEND Nurse Practitioner
DX: A09 Infectious gastroenteritis and colitis, unspecified (principal); N17.0 Acute kidney failure with tubular necrosis; E86.0 Dehydration; I10 Essential (primary) hypertension
CPT/HCPCS: 36415; 74176; 80048; 80053; 81001; 82270; 85007; 85025; 85027; 85048; 86141; 86803; 87045; 87340; 87427; 87493; 93005; 96361; 96365; G0378; J3490

== ENCOUNTER 2025-05-13 08:54 | Outpatient (CLI) | payer BC, MEDICARE ==
[~2025-05-13] VITALS: Ht 180.3 cm; Wt 74.8 kg
[~2025-05-13 08:54] MED LIST: LEVO500T91 PO; METR-344 PO
[2025-05-13] MEDS: REGADENOSON 0.4 MG/5 ML SYRG IV ONE ×2 (11:51)
--- NOTE | 2025-05-16 09:54 | DVHSR ---
APPROVED REPORT Exam: Nuclear Stress Test BMI: 0 Stress Test Details Stress Test: Pharmacologic stress testing performed using 0.4 mg of regadenoson per 5 mL given IV ov er 10 seconds. HR Resting HR: 56 bpmMax Heart Rate (APMHR): 149.067343 bpm Max HR Achieved: 89 bpmTarget HR (85% APMHR): 126.896255 bpm % of APMHR: 59.73 Recovery HR: 62 bpm BP Resting BP: 179/89 mmHg Recovery BP: 170/94 mmHg ECG Resting ECG: Sinus Bradycardia Clinical Reason for Termination: Completed protocol Nurse Comments Recieved pt. from [employer]. A/Ox4 on RA. Connected to monitoring coordinator, VS stable. PIV flushes well. Re viewed POC. Pt. verbalized understanding of procedure including risks and side effects, agrees for st ress testing. Lexiscan stress test performed per protocol. [facility] [employer] tech administered Cardiolite. Pt. tolerated well . Pt. stable, no change on exam. VS returned to baseline. Transferred to [facility] [employer] via wheelchair w/ te ch. Stress ECG Conclusion lvef 51% normal perfusion scan no severe ischemai noted NM EXAM: Myocardial Perfusion REST/STRESS Imaging Protocol: Rest Tc-99m/Stress Tc-99m 1 day Resting Data Rest SPECT myocardial perfusion imaging was performed in supine position 60 minutes following the int ravenous injection of 10.2 mCi of Tc-99m Sestamibi. Time of rest injection: 0900 Time of rest imagin Administration Route: IV Administration Site: Left Hand Pharmacologic Stress Pharmacologic stress test was performed by injecting Regadenoson 0.4 mg IV push followed by the intra venous injection of 30.3 mCi of Tc-99m Sestamibi. Time of stress injection: 1030 Time of stress imagin Administration Route: IV Administration Site: Left Hand Gated Stress SPECT was performed 45 minutes after stress injection. The images were gated to evaluate regional wall motion and calculate left ventricular ejection fracti on. Nuclear Conclusion Nuclear Findings: negative for ischemia lvef 51% normal perfusion scan no severe ischemai noted
== END 2025-05-13 17:00 | disposition home or self-care (01) ==
LOC: XY 08:54
PROVIDERS: ATTEND Specialist
DX: R00.1 Bradycardia, unspecified (principal); I10 Essential (primary) hypertension; R06.02 Shortness of breath
CPT/HCPCS: 78452; 93017; A9500; J2785